=== PATIENT | male | born 1965 | race Caucasian/White ===

== ENCOUNTER 2016-10-03 16:43 | Outpatient (CLI) ==
[2015-04-23 02:18] VITALS: BMI 31.5
--- NOTE | 2016-10-03 17:02 | DI ---
EXAM: Three views of the left HISTORY: Pain. COMPARISON: Left hand x-ray 02/16/2011 FINDINGS: The left first digit is unchanged in appearance when compared to prior left hand x-ray . There is minimal irregularity of the proximal phalanx which is stable. There is degenerat rossana change of the first CMC joint and the MCP joint which is stable. The soft tissues are unremarka ble. IMPRESSION: No acute abnormality or displaced fracture of the left thumb with scattered mild degene rative disease most pronounced at the first CMC joint.
== END 2016-10-03 16:44 | disposition home or self-care (01) ==
LOC: RAD 16:43
PROVIDERS: ATTEND Nurse Practitioner Family
DX: M79.645 Pain in left finger(s) (principal); M65.312 Trigger thumb, left thumb

== ENCOUNTER 2016-10-12 13:37 | Outpatient (CLI) ==
[2015-04-23 02:18] VITALS: BMI 31.5
[2016-10-12 13:50] LABS: BASOPHILS % (AUTO) 0.4 % (0.0-3.0); EOSINOPHILS # (AUTO) 0.3 K/ul (0.0-0.7); EOSINOPHILS % (AUTO) 3.6 % (0.0-7.0); HEMATOCRIT 46.1 % (42.0-52.0); HEMOGLOBIN 15.4 g/dl (14.0-18.0); IMMATURE GRANULOCYTE % (AUTO) 0.3 % (0.0-5.0); LYMPHOCYTES % (AUTO) 38.8 (10.0-50.0); MEAN CORPUSCULAR HEMOGLOBIN 29.8 pg (27.0-31.0); MEAN CORPUSCULAR HGB CONC 33.4 (31.8-35.4); MEAN CORPUSCULAR VOLUME 89.3 fl (80.0-94.0); MONOCYTES # (AUTO) 0.7 K/uL (0.4-2.0); MONOCYTES % (AUTO) 9.4 (0-10); NEUTROPHILS # (AUTO) 3.7 K/ul (2.0-6.9); NEUTROPHILS % (AUTO) 47.5; PLATELET COUNT 369 10^3/uL (140-440); RED BLOOD COUNT 5.16 10^6/ul (4.70-6.10); WHITE BLOOD COUNT 7.84 K/ul (4.2-10.2)
[2016-10-12 14:00] LABS: ALBUMIN 3.9 g/dL (3.4-5.0); ALBUMIN/GLOBULIN RATIO 1.05; ANION GAP 9.5; BILIRUBIN,TOTAL 0.58 mg/dL (0.00-1.20); BUN/CREATININE RATIO 16.27; CALCIUM 9.8 mg/dL (8.2-10.2); CHOL/HDL RATIO 5.8 (4.5-6.4); CREATININE 0.86 mg/dL (0.60-1.10); POTASSIUM 4.5 mmol/L (3.5-5.1); TOTAL PROTEIN 7.6 g/dL (6.4-8.2)
== END 2016-10-12 13:38 | disposition home or self-care (01) ==
LOC: LAB 13:37
PROVIDERS: ATTEND Nurse Practitioner Family
DX: R81 Glycosuria (principal); R10.11 Right upper quadrant pain; E75.6 Lipid storage disorder, unspecified
CPT/HCPCS: 36415; 80053; 80061; 80074; 83036; 85025

== ENCOUNTER 2016-10-16 07:49 | Outpatient (CLI) ==
[2015-04-23 02:18] VITALS: BMI 31.5
[2016-10-16 08:18] LABS: CHOL/HDL RATIO 6.5 (4.5-6.4)
--- NOTE | 2016-10-16 08:44 | US ---
EXAM: Ultrasound abdomen limited. HISTORY: Right upper quadrant pain. COMPARISON: None available. TECHNIQUE: Abdominal, real time with image documentation: limited (eg, single organ, quadrant, fol low-up) FINDINGS: The liver demonstrates homogeneous parenchymal echogenicity without intrahepatic biliary dilatation. Portal venous flow is normal in direction. The gallbladder is without shadowing stones , wall thickening or pericholecystic fluid. Common duct measures approximately 0.3 cm. The pancrea s is not seen due to bowel gas. IMPRESSION: No acute sonographic abnormality of the liver, gallbladder or biliary system.
== END 2016-10-16 07:50 | disposition home or self-care (01) ==
LOC: RAD 07:49
PROVIDERS: ATTEND Nurse Practitioner Family
DX: R10.11 Right upper quadrant pain (principal); R79.89 Other specified abnormal findings of blood chemistry
CPT/HCPCS: 36415; 80061

== ENCOUNTER 2017-05-22 02:52 | Inpatient (IN) ==
[2017-05-22] MEDS ORDERED: XOPENEX 1.25 MG NEB STA (03:19)
[2017-05-22] MEDS ORDERED: SOLU-MEDROL 125 MG IVP STA (03:19)
[2017-05-22] MEDS ORDERED: SODIUM CHLORIDE 1,000 ML IV STA ×2 (03:19→06:06)
[2017-05-22] MEDS ORDERED: LEVAQUIN 750 MG in PREMIX 150 ML D5W 1 BAG IV STA (03:19)
[2017-05-22] MEDS ORDERED: DUONEB NEB STA (03:19)
[2017-05-22] MEDS ORDERED: LEVAQUIN 150 ML IV ONE (03:27)
[2017-05-22 03:39] LABS: BASOPHILS # (AUTO) 0.1 K/uL (0-0.2); BASOPHILS % (AUTO) 0.4 % (0.0-3.0); EOSINOPHILS # (AUTO) 0.1 K/ul (0.0-0.7); EOSINOPHILS % (AUTO) 0.5 % (0.0-7.0); HEMATOCRIT 41.9 % (42.0-52.0); HEMOGLOBIN 14.6 g/dl (14.0-18.0); IMMATURE GRANULOCYTE % (AUTO) 0.4 % (0.0-5.0); LYMPHOCYTES # (AUTO) 2.4 K/uL (0.60-3.4); LYMPHOCYTES % (AUTO) 14.5 (10.0-50.0); MEAN CORPUSCULAR HEMOGLOBIN 30.9 pg (27.0-31.0); MEAN CORPUSCULAR HGB CONC 34.8 (31.8-35.4); MEAN CORPUSCULAR VOLUME 88.6 fl (80.0-94.0); MONOCYTES # (AUTO) 1.9 K/uL (0.4-2.0); MONOCYTES % (AUTO) 11.1 (0-10); NEUTROPHILS # (AUTO) 12.2 K/ul (2.0-6.9); NEUTROPHILS % (AUTO) 73.1; PLATELET COUNT 591 10^3/uL (140-440); RED BLOOD COUNT 4.73 10^6/ul (4.70-6.10); WHITE BLOOD COUNT 16.63 K/ul (4.2-10.2)
[2017-05-22 03:43] LABS: ABG BASE EXCESS 3 (-2.0-2.0); ABG PCO2 39.2 mmHg (35-45); ABG PH 7.444 (7.35-7.45)
[2017-05-22 03:44] LABS: ABG HCO3 26.9 (22.0-26.0); ABG TCO2 28 (22.0-28.0)
[2017-05-22 03:56] LABS: FLU INTERNAL QC INTERNAL QC VALID; RAPID FLU A NEGATIVE (NEGATIVE); RAPID FLU B NEGATIVE (NEGATIVE)
[2017-05-22 04:05] LABS: ALANINE AMINOTRANSFERASE 79 U/L (12-78); ALBUMIN 3.1 g/dL (3.4-5.0); ALBUMIN/GLOBULIN RATIO 0.61; ALKALINE PHOSPHATASE 108 U/L (50-136); ANION GAP 15.9; ASPARTATE AMINO TRANSFERASE 29 U/L (15-37); BLOOD UREA NITROGEN 13 mg/dL (7-18); BUN/CREATININE RATIO 13.13; CARBON DIOXIDE 28 mmol/L (21-32); CHLORIDE 97 mmol/L (98-107); CREATINE KINASE 80 U/L; CREATININE 0.99 mg/dL (0.60-1.10); GLUCOSE 162 mg/dL (70-100); POTASSIUM 4.9 mmol/L (3.5-5.1); SODIUM 136 mmol/L (136-145); TOTAL PROTEIN 8.2 g/dL (6.4-8.2)
[2017-05-22 05:26] LABS: BILIRUBIN,URINE Negative (NEGATIVE); KETONES,URINE 1+ (NEGATIVE); LEUKOCYTE ESTERASE ,URINE Negative (NEGATIVE); NITRITE,URINE Negative (NEGATIVE); PROTEIN,URINE 2+ (NEGATIVE); URINE, BLOOD Trace-lysed (NEGATIVE)
[2017-05-22 05:32] LABS: ADD URINE MICROSCOPIC YES
--- NOTE | 2017-05-22 05:35 | CT ---
EXAM: CTA thorax HISTORY: Congestion fever, dyspnea COMPARISON: CTA thorax 08/12/2011 FINDINGS: Contiguous axial images obtained through the thorax following the uneventful administratio n of intravenous contrast utilizing 3-mm collimation. Sagittal and coronal reconstructions were imag ed and reviewed.. Source images were utilized to create rotating 3-D MIP images... Thoracic inlet is unremarkable. There is a 12 mm paratracheal lymph node. There are subcentimeter prevascular and AP window lymph nodes. There is 1.7 cm right hilar lymph node. There is a 2.1 cm subcarinal lymph nod e. The heart is normal in size with minimal coronary artery calcification. There is suboptimal opac ification of pulmonary arteries without central embolus. Scattered tree-in-bud opacities noted bilate rally compatible with bronchiolitis.. Nodular interstitial infiltrate is seen within the right lower lobe. There is no evidence of pleural effusion.. There is a 2 cm left adrenal adenoma. IMPRESSION: Suboptimal opacification of the pulmonary arteries without central embolus. Mildly ectatic ascending aorta measuring upwards of 3.4 cm. MEDIASTINAL, RIGHT HILAR AND SUBCARINAL LYMPHADENOPATHY WHICH IS LIKELY REACTIVE IN NATURE AND SHOULD BE FOLLOWED UP. SCATTERED TREE-IN-BUD CONFIGURATION IN ADDITION TO RIGHT LOWER LOBE PNEUMONIA.
--- NOTE | 2017-05-22 05:59 | ED.PDOC ---
General ED Provider: Dr. SHANICE PEGUERO-ER Chief Complaint: Shortness of Air Stated Complaint: im coughing up some yellow stuff and running a fever and chills Time Seen by Physician: 03:00 Mode of Arrival: Walk-In Information Source: Patient Exam Limitations: No limitations Primary Care Provider: [facility] Nursing and Triage Documentation Reviewed and Agree: Yes Respiratory Complaint Exam - Shortness of Air Complaint/Exam Onset/Duration: 7 dyas Symptoms Are: Still present Timing: Constant Initial Severity: Mild Current Severity: Moderate Character: Reports: Dyspnea at rest, Dyspnea on exertion Aggravating: Reports: Smoke exposure Alleviating: Reports: Bronchodilators Associated Signs and Symptoms: Reports: Cough, Wheezing, Fever, Chills, Nasal congestion, Rapid breathing. Denies: Chest pain with cough, Chest pain, Diaphoresis, Dizziness, Calf pain, Edema, Labored breathing History of Healthcare-Acquired Pneumonia: No Pulmonary Embolism Risk Factors: Reports: Smoking Cardiac Risk Factors: Reports: Smoking Home Oxygen Use: No Recent Stress Test: No Recent Echo/LV Function: No Respiratory Distress: Mild Stridor Present: No Tracheal Deviation: No Subcutaneous Emphysema: No Retractions: Not Present Diminished Breath Sounds: Yes Prolonged Expiratory Phase: No Unable to Speak Full Sentences: No Fatigue: No Leg Swelling: No Rizwan's Sign Present: No Grunting Respirations: No Kussmaul Respirations: No Differential Diagnoses: Pulmonary Edema, Pneumonia Quality Indicator For Non-Traumatic Chest Pain/Syncope: EKG Performed Quality Indicators For Pneumonia/CAP: Blood Cultures-SCU admit, SpO2 assessed, Empiric Antibiotic Rx, Vital signs, Mental status assessed Review of Systems - Review Of Systems Constitutional: Reports: Chills, Fever, Weakness Eyes: Reports: No symptoms Ears, Nose, Mouth, Throat: Reports: No symptoms Respiratory: Reports: Cough, Short of air Cardiac: Reports: No symptoms GI: Reports: No symptoms : Reports: No symptoms Musculoskeletal: Reports: No symptoms Skin: Reports: No symptoms Neurological: Reports: No symptoms Endocrine: Reports: No symptoms Hematologic/Lymphatic: Reports: No symptoms All Other Systems: Reviewed and Negative Past Medical History - Past Medical History Previously Healthy: Yes Endocrine: Reports: None Cardiovascular: Reports: None Respiratory: Reports: None Hematological: Reports: None Gastrointestinal: Reports: None Genitourinary: Reports: None Neuro/Psych: Reports: None Musculoskeletal: Reports: Other Cancer: Reports: None - Surgical History General Surgical History: Reports: Orthopedic (right thumb) - Family History Family History: Reports: None - Social History Smoking Status: Current every day smoker Hx Substance Use: Yes (marijuana) Alcohol Screening: None - Immunizations Tetanus Shot up to Date: Yes Physical Exam - Physical Exam Appearance: Well-appearing Pain Distress: Mild Eyes: JANE ENT: Ears normal, Nose normal, Oropharynx normal Neck: Supple Respiratory: Crackles, Rhonchi Cardiovascular: RRR, Pulses normal, No rub, No murmur GI/: Soft, Nontender, No masses, Bowel sounds normal, No Organomegaly Musculoskeletal: Normal strength, ROM intact, No edema, No calf tenderness Skin: Warm, Dry, Normal color Neurological: Sensation intact, Motor intact, Reflexes intact, Cranial nerves intact, Alert, Oriented Psychiatric: Affect appropriate, Mood appropriate Interpretation - Radiology Interpretation Radiology Interpretation By: Radiologist Radiology Results: Positive Exam Interpreted: CT Scan - EKG Interpretation Time of EKG #1: 05:59 Rate: Tachy Rhythm: Sinus Ectopy: None Dubberly: NL ST Segment: Normal Re-Evaluation - Re-Evaluation Time of Re-Evaluation: 05:59 Status: Improved Vital Signs Stable: Yes Pain Level: 0 Appearance: NAD Lungs: Clear Skin: Warm and Dry Neuro: Alert and Oriented X3 CV: RRR Critical Care Note - Critical Care Note Total Time (mins): 0 Course - Course Hematology/Chemistry: 05/22/17 03:35 05/22/17 03:35 Orders, Labs, Meds: Lab Review 05/22/17 05/22/17 05/22/17 03:17 03:30 03:35 WBC 16.63 H RBC 4.73 Hgb 14.6 Hct 41.9 L MCV 88.6 MCH 30.9 MCHC 34.8 RDW Coeff of Linda 14.0 Plt Count 591 H Immature Gran % (Auto) 0.4 Neut % (Auto) 73.1 Lymph % (Auto) 14.5 [place] % (Auto) 11.1 H Eos % (Auto) 0.5 Baso % (Auto) 0.4 Immature Gran # (Auto) 0.1 Neut # 12.2 H Lymph # 2.4 [place] # 1.9 Eos # 0.1 Baso # 0.1 Puncture Site Rr O2 Saturation 85.0 L ABG pH 7.444 ABG pCO2 39.2 ABG pO2 48.0 L* ABG HCO3 26.9 H ABG Total CO2 28 ABG Base Excess 3 H Chalino Test + FiO2 % 21.0 Sodium Potassium Chloride Carbon Dioxide Anion Gap BUN Creatinine Estimated GFR (MDRD) BUN/Creatinine Ratio Glucose Lactic Acid Calcium Total Bilirubin AST ALT Alkaline Phosphatase Total Creatine Kinase Troponin I B-Natriuretic Peptide Total Protein Albumin Globulin Albumin/Globulin Ratio Procalcitonin Urine Color Urine Clarity Urine pH Ur Specific Cunningham Urine Protein Urine Glucose (UA) Urine Ketones Urine Blood Urine Nitrite Urine Bilirubin Urine Urobilinogen Ur Leukocyte Esterase Urine Microscopic RBC Ur Squamous Epith Cells Influenza A (Rapid) Negative Influenza B (Rapid) Negative 05/22/17 05/22/17 05/22/17 03:35 03:35 03:35 WBC RBC Hgb Hct MCV MCH MCHC RDW Coeff of Linda Plt Count Immature Gran % (Auto) Neut % (Auto) Lymph % (Auto) [place] % (Auto) Eos % (Auto) Baso % (Auto) Immature Gran # (Auto) Neut # Lymph # [place] # Eos # Baso # Puncture Site O2 Saturation ABG pH ABG pCO2 ABG pO2 ABG HCO3 ABG Total CO2 ABG Base Excess Chalino Test FiO2 % Sodium 136 Potassium 4.9 Chloride 97 L Carbon Dioxide 28 Anion Gap 15.9 BUN 13 Creatinine 0.99 Estimated GFR (MDRD) 80.00 BUN/Creatinine Ratio 13.13 Glucose 162 H Lactic Acid 9.4 Calcium 10.0 Total Bilirubin 0.70 AST 29 ALT 79 H Alkaline Phosphatase 108 Total Creatine Kinase 80 Troponin I < 0.0100 B-Natriuretic Peptide 15 Total Protein 8.2 Albumin 3.1 L Globulin 5.1 Albumin/Globulin Ratio 0.61 Procalcitonin Urine Color Urine Clarity Urine pH Ur Specific Cunningham Urine Protein Urine Glucose (UA) Urine Ketones Urine Blood Urine Nitrite Urine Bilirubin Urine Urobilinogen Ur Leukocyte Esterase Urine Microscopic RBC Ur Squamous Epith Cells Influenza A (Rapid) Influenza B (Rapid) 05/22/17 05/22/17 03:35 05:20 WBC RBC Hgb Hct MCV MCH MCHC RDW Coeff of Linda Plt Count Immature Gran % (Auto) Neut % (Auto) Lymph % (Auto) [place] % (Auto) Eos % (Auto) Baso % (Auto) Immature Gran # (Auto) Neut # Lymph # [place] # Eos # Baso # Puncture Site O2 Saturation ABG pH ABG pCO2 ABG pO2 ABG HCO3 ABG Total CO2 ABG Base Excess Chalino Test FiO2 % Sodium Potassium Chloride Carbon Dioxide Anion Gap BUN Creatinine Estimated GFR (MDRD) BUN/Creatinine Ratio Glucose Lactic Acid Calcium Total Bilirubin AST ALT Alkaline Phosphatase Total Creatine Kinase Troponin I B-Natriuretic Peptide Total Protein Albumin Globulin Albumin/Globulin Ratio Procalcitonin 0.07 Urine Color Yellow Urine Clarity Clear Urine pH 5.0 Ur Specific Cunningham <=1.005 Urine Protein 2+ Urine Glucose (UA) Negative Urine Ketones 1+ Urine Blood Trace-lysed Urine Nitrite Negative Urine Bilirubin Negative Urine Urobilinogen 0.2 Ur Leukocyte Esterase Negative Urine Microscopic RBC 0-2 Ur Squamous Epith Cells 0-2 Influenza A (Rapid) Influenza B (Rapid) Orders Category Date Time Status ABG DRAW REQUEST Stat CARDIO 05/22/17 03:18 Completed EKG-(ED ONLY) Stat CARDIO 05/22/17 03:18 Completed NEBULIZER TREATMENT Stat CARDIO 05/22/17 03:20 Completed NPO REMINDER: IMAGING ONCE CARE 05/22/17 03:20 Completed IV [ED IV/MEDIPORT/POWERPORT] .ONCE EMERGENCY 05/22/17 03:18 Active ABG Stat LAB 05/22/17 03:17 Completed BLOOD CULTURE (ED ONLY) Stat LAB 05/22/17 03:35 Received BNP [B-TYPE NATRIURETIC PEPTIDE] Stat LAB 05/22/17 03:35 Completed CBC W/ AUTO DIFF Stat LAB 05/22/17 03:35 Completed COMPREHENSIVE METABOLIC PANEL Stat LAB 05/22/17 03:35 Completed CREATINE KINASE Stat LAB 05/22/17 03:35 Completed LACTIC ACID Stat LAB 05/22/17 03:35 Completed MOLECULAR GROUP A STREP Stat LAB 05/22/17 03:30 Results PROCALCITONIN Stat LAB 05/22/17 03:35 Completed RAPID FLU A/B Stat LAB 05/22/17 03:30 Completed STREP SCREEN Stat LAB 05/22/17 03:30 Results TROPONIN I Stat LAB 05/22/17 03:35 Completed URINALYSIS C & S IF INDICATED Stat LAB 05/22/17 05:20 Completed 0.9 % Sodium Chloride [Saline Flush] MEDS 05/22/17 03:18 Ordered 1 syr IVF PRN PRN Ipratropium/Albuterol Neb [Duoneb] MEDS 05/22/17 03:19 Discontinued 1 vial NEB ONCE STA Levalbuterol HCl [Xopenex 1.25 mg] MEDS 05/22/17 03:19 Discontinued 1 vial NEB ONCE STA Levofloxacin/D5w [Levaquin] 150 ml MEDS 05/22/17 03:27 Discontinued IV .STK-MED Levofloxacin/D5w [Levaquin] 750 mg MEDS 05/22/17 03:19 Discontinued Premix 150 ml D5w 1 bag IV ONCE Methylprednisolone Sod Succ/Pf [Solu-Medrol 125 mg] MEDS 05/22/17 03:19 Discontinued 125 mg IVP ONCE STA Sodium Chloride 0.9% [Sodium Chloride] 1,000 ml MEDS 05/22/17 03:19 Active IV 100 mls/hr CT CHEST PE PROTOCOL Stat RADS 05/22/17 03:20 Completed Medications Generic Name Dose Route Start Last Admin Trade Name Freq PRN Reason Stop Dose Admin Sodium Chloride 1,000 mls @ 100 mls/hr 05/22/17 03:19 05/22/17 03:26 Sodium Chloride IV 05/22/17 13:18 100 mls/hr .Q10H STA Administration Sodium Chloride 1 syr 05/22/17 03:18 05/22/17 03:25 Saline Flush IVF 1 syr PRN PRN Administration To flush IV Discontinued Medications Generic Name Dose Route Start Last Admin Trade Name Freq PRN Reason Stop Dose Admin Albuterol/Ipratropium 1 vial 05/22/17 03:19 05/22/17 03:33 Duoneb NEB 05/22/17 03:20 1 vial ONCE STA Administration Levofloxacin/Dextrose 750 mg/ 150 mls @ 100 mls/hr 05/22/17 03:19 05/22/17 03 :29 Dextrose IV 05/22/17 04:48 100 mls/hr ONCE STA Administration Levalbuterol HCl 1 vial 05/22/17 03:19 05/22/17 03:45 Xopenex 1.25 Mg NEB 05/22/17 03:20 1 vial ONCE STA Administration Methylprednisolone Sodium Succinate 125 mg 05/22/17 03:19 05/22/17 03:27 Solu-Medrol 125 Mg IVP 05/22/17 03:20 125 mg ONCE STA Administration Vital Signs: Temp Pulse Resp BP Pulse Ox 05/22/17 04:06 87 L 05/22/17 04:00 86 L 05/22/17 03:59 85 L 05/22/17 02:53 99.9 F H 110 H 22 142/85 H 86 L Departure - Departure Time of Disposition: 06:00 Disposition: ADMITTED INPATIENT Discharge Problem: Acute respiratory failure Qualifiers: Respiratory failure complication: hypoxia Qualified Code(s): J96.01 - Acute respiratory failure with hypoxia Pneumonia Qualifiers: Pneumonia type: due to unspecified organism Laterality: right Lung location: lower lobe of lung Qualified Code(s): J18.1 - Lobar pneumonia, unspecified organism Instructions: Community Acquired Pneumonia (ED) Condition: Fair Pt referred to PMD for follow-up: Yes Allergies/Adverse Reactions: Allergies cephalexin monohydrate [From Keflex] Adverse Reaction (Verified 05/22/17 03:01) Home Medications: Ambulatory Orders 1 [No Reported Medications] 05/22/17 Disposition Discussed With: Patient
[2017-05-22] MEDS ORDERED: TYLENOL PO PRN (06:01)
[2017-05-22 06:32] VITALS: BMI 28.5
[2017-05-22] MEDS: LOVENOX SUBCUT SCH (09:05)
[2017-05-22] MEDS: DUONEB NEB SCH ×3 (11:03→23:07)
[2017-05-22] MEDS: LEVAQUIN 750 MG in PREMIX 150 ML D5W 1 BAG IV SCH (20:13)
[2017-05-22] MEDS: SOLU-MEDROL 125 MG IVP SCH (20:22)
[2017-05-23] MEDS: SOLU-MEDROL 125 MG IVP SCH ×3 (04:26→20:00)
[2017-05-23 04:31] LABS: BASOPHILS % (AUTO) 0.2 % (0.0-3.0); HEMOGLOBIN 13.5 g/dl (14.0-18.0); IMMATURE GRANULOCYTE % (AUTO) 0.9 % (0.0-5.0); LYMPHOCYTES # (AUTO) 1.2 K/uL (0.60-3.4); LYMPHOCYTES % (AUTO) 6.1 (10.0-50.0); MEAN CORPUSCULAR HEMOGLOBIN 30.6 pg (27.0-31.0); MEAN CORPUSCULAR HGB CONC 34.6 (31.8-35.4); MEAN CORPUSCULAR VOLUME 88.4 fl (80.0-94.0); MONOCYTES # (AUTO) 0.9 K/uL (0.4-2.0); MONOCYTES % (AUTO) 4.7 (0-10); NEUTROPHILS % (AUTO) 88.1; PLATELET COUNT 607 10^3/uL (140-440); RED BLOOD COUNT 4.41 10^6/ul (4.70-6.10); WHITE BLOOD COUNT 19.28 K/ul (4.2-10.2)
[2017-05-23 04:57] LABS: ALBUMIN 2.6 g/dL (3.4-5.0); ALBUMIN/GLOBULIN RATIO 0.51; ANION GAP 17.7; BILIRUBIN,TOTAL 0.27 mg/dL (0.00-1.20); CALCIUM 10.1 mg/dL (8.2-10.2); POTASSIUM 4.7 mmol/L (3.5-5.1); TOTAL PROTEIN 7.7 g/dL (6.4-8.2)
[2017-05-23] MEDS: DUONEB NEB SCH ×4 (05:02→22:15)
[2017-05-23 07:42] LABS: ABG PCO2 39.1 mmHg (35-45); ABG PH 7.427 (7.35-7.45)
[2017-05-23 07:43] LABS: ABG BASE EXCESS 1 (-2.0-2.0); ABG HCO3 25.7 (22.0-26.0); ABG TCO2 27 (22.0-28.0)
[2017-05-23] MEDS: LOVENOX SUBCUT SCH (09:19)
--- NOTE | 2017-05-23 15:48 | HP ---
DATE OF SERVICE: 05/22/17 CHIEF COMPLAINT: Shortness of breath. HISTORY OF PRESENT ILLNESS: This is a 51-year-old male who came to the emergency room with shortness of breath, worsening for one week gradually getting worse, wheezing, coughing ( nonproductive) having palpitations, hurting all over the body, fever of 102. Fever and chills unable to breathe so came in and saw Dr. Lepe in the emergency room. Initial white blood count of 16,000. ABG showed pH 7.44, pc02 39.2, p02 48. First set of cardiac enzymes are negative. CT chest with PE protocol was done which showed right lower lobe pneumonia, no pulmonary embolism. At that time the patient was admitted to the hospital with acute respiratory failure, right lower lobe pneumonia, community acquired pneumonia. REVIEW OF SYSTEMS: CONSTITUTIONAL: Weakness, tiredness. Fever and chills. HEENT: Normal. ENDOCRINE: No weight gain; no weight loss. CVS: No chest pain. No PND, no orthopnea. Shortness of breath. No PND, no orthopnea. RESPIRATORY: Cough and congestion. No hemoptysis. GI: No nausea, no vomiting. No abdominal pain. No melena. : No hematuria. No polyuria. MUSCULOSKELETAL: No joint swelling. PSYCHIATRIC: Not anxious. No depression. No suicidal thoughts. No homicidal thoughts. SKIN: Intact, no open lesions. PAST MEDICAL HISTORY: Smoking Substance use PAST SURGICAL HISTORY: None PERSONAL HISTORY: The patient does smoke, 5 cigarettes a day, trying to quit. No alcohol. No drugs. Uses Marijuana. FAMILY HISTORY: Significant for heart problem and diabetes. MEDICATIONS: (Home) None ALLERGIES: KEFLEX PHYSICAL EXAMINATION: V/S: BP 142/85, respiratory rate 22, heart rate 110, temperature 99.9. Saturation 86 on 2L. GENERAL: The patient is in mild distress from shortness of breath. HEENT: Atraumatic, normocephalic. No scleral icterus. Pallor positive. Mucosa dry. NECK: Supple. No JVD, no bruit. No lymphadenopathy. No thyromegaly. HEART: S1, S2 normal. No murmur. No cyanosis or clubbing. No ascites. LUNGS: Decreased entry, basilar crackles. Mild expiratory wheeze. ABDOMEN: Soft, nontender. Bowel sounds are active. No CVA tenderness. No rigidity or guarding. EXTREMITIES: No cyanosis, clubbing or pedal edema. MUSCULOSKELETAL: Normal joints, no swelling. NEUROLOGIC: The patient is SKIN: Intact; no open lesions. LYMPHATIC: No lymph nodes palpable. LABS: Sodium 136, potassium 4.9, chloride 97, bicarb 28, BUN 13, creatinine 0.99. White count 16.63, hemoglobin 14.6, hematocrit 41.9, platelet count 591. ASSESSMENT: 1. HYPOXEMIC RESPIRATORY FAILURE SECONDARY TO RIGHT LOWER LOBE COMMUNITY ACQUIRED PNEUMONIA 2. LEUKOCYTOSIS FROM PNEUMONIA 3. SHORTNESS OF BREATH FROM PNEUMONIA PLAN: 1. Admit patient to the regular floor. 2. CBC, CMP today and daily. 3. Cardiac enzymes and troponin. 4. IV fluids. 5. Duonebs. 6. Levaquin. 7. Solu-Medrol 80 q.8hr. 8. Daily I & O's. TIME SPENT: MORE THAN 70 minutes MTDD
[2017-05-23] MEDS: LEVAQUIN 750 MG in PREMIX 150 ML D5W 1 BAG IV SCH (20:00)
[2017-05-24 04:36] LABS: BASOPHILS % (AUTO) 0.2 % (0.0-3.0); HEMATOCRIT 38.9 % (42.0-52.0); HEMOGLOBIN 13.2 g/dl (14.0-18.0); IMMATURE GRANULOCYTE % (AUTO) 1.1 % (0.0-5.0); LYMPHOCYTES # (AUTO) 1.7 K/uL (0.60-3.4); LYMPHOCYTES % (AUTO) 6.7 (10.0-50.0); MEAN CORPUSCULAR HEMOGLOBIN 30.2 pg (27.0-31.0); MEAN CORPUSCULAR HGB CONC 33.9 (31.8-35.4); MONOCYTES # (AUTO) 1.3 K/uL (0.4-2.0); MONOCYTES % (AUTO) 4.9 (0-10); NEUTROPHILS # (AUTO) 22.1 K/ul (2.0-6.9); NEUTROPHILS % (AUTO) 87.1; PLATELET COUNT 631 10^3/uL (140-440); RED BLOOD COUNT 4.37 10^6/ul (4.70-6.10); WHITE BLOOD COUNT 25.36 K/ul (4.2-10.2)
[2017-05-24] MEDS: DUONEB NEB SCH ×4 (04:58→22:00)
[2017-05-24 05:07] LABS: ALBUMIN 2.7 g/dL (3.4-5.0); ALBUMIN/GLOBULIN RATIO 0.6; ANION GAP 12.5; BILIRUBIN,TOTAL 0.24 mg/dL (0.00-1.20); BUN/CREATININE RATIO 24.13; CALCIUM 9.7 mg/dL (8.2-10.2); CREATININE 0.87 mg/dL (0.60-1.10); POTASSIUM 4.5 mmol/L (3.5-5.1); TOTAL PROTEIN 7.2 g/dL (6.4-8.2)
[2017-05-24] MEDS: SOLU-MEDROL 125 MG IVP SCH ×3 (05:14→20:49)
[2017-05-24] MEDS: LOVENOX SUBCUT SCH (10:18)
--- NOTE | 2017-05-24 10:38 | DI ---
EXAM: Two views of the chest. History: Cough. Comparison: Chest radiograph 06/11/2014, chest CT 05/22/2017 Findings: Heart size is within normal limits. Patchy bilateral interstitial infiltrates are stable to slightly improved. No acute osseous abnormalities. No appreciable pleural fluid and no pneumothor ax. Impression: Persistent but improving bilateral pneumonia.
[2017-05-24] MEDS: LEVAQUIN 750 MG in PREMIX 150 ML D5W 1 BAG IV SCH (20:49)
[2017-05-25] MEDS: DUONEB NEB SCH ×2 (04:50→11:11)
[2017-05-25] MEDS: SOLU-MEDROL 125 MG IVP SCH ×2 (05:13→13:39)
[2017-05-25 05:14] LABS: HEMATOCRIT 36.9 % (42.0-52.0); HEMOGLOBIN 13.8 g/dl (14.0-18.0); MEAN CORPUSCULAR HEMOGLOBIN 34.2 pg (27.0-31.0); MEAN CORPUSCULAR HGB CONC 37.4 (31.8-35.4); MEAN CORPUSCULAR VOLUME 91.6 fl (80.0-94.0); PLATELET COUNT 668 10^3/uL (140-440); RED BLOOD COUNT 4.03 10^6/ul (4.70-6.10); WHITE BLOOD COUNT 20.84 K/ul (4.2-10.2)
[2017-05-25 05:37] LABS: ALBUMIN 2.8 g/dL (3.4-5.0); ALBUMIN/GLOBULIN RATIO 0.64; ANION GAP 11.8; BILIRUBIN,TOTAL 0.33 mg/dL (0.00-1.20); BUN/CREATININE RATIO 22.61; CALCIUM 9.4 mg/dL (8.2-10.2); CREATININE 0.84 mg/dL (0.60-1.10); POTASSIUM 4.8 mmol/L (3.5-5.1); TOTAL PROTEIN 7.2 g/dL (6.4-8.2)
[2017-05-25 05:38] LABS: ANISOCYTOSIS NOT PRESENT (NOT PRESENT)
[2017-05-25 05:53] VITALS: TEMP 97.6
[2017-05-25] MEDS: LOVENOX SUBCUT SCH (09:15)
[2017-05-25 10:37] VITALS: BP 128/83
[2017-05-25] MEDS ORDERED: LEVAQUIN 750 MG in PREMIX 150 ML D5W 1 BAG IV ONE (12:00)
--- NOTE | 2017-06-29 15:22 | PN ---
DATE OF SERVICE: 05/23/17 SUBJECTIVE: The patient was admitted with acute respiratory failure, right lower lobe pneumonia and COPD exacerbation. The patient is sitting in the bed still coughing and congestion. REVIEW OF SYSTEMS: CONSTITUTIONAL: No fever, no chills. HEENT: Normal. ENDOCRINE: No weight gain, no weight loss. CVS: No angina symptoms. No CHF symptoms. No palpitations. No atypical chest pain for CAD. No shortness of breath. No PND, no orthopnea. RESPIRATORY: Cough and congestion. no hemoptysis. GI: No nausea, no vomiting. No abdominal pain. : No hematuria. No polyuria. MUSCULOSKELETAL:. No joint swelling. PSYCHIATRIC: Not anxious. No depression. No suicidal thoughts. No homicidal thoughts. SKIN: Intact. No rash. PHYSICAL EXAMINATION: V/S: Blood pressure 133/69, respiratory rate 24, heart rate 93, temperature 97.6 with saturation 90 on 3 liters. HEENT: Normocephalic, atraumatic. Mucosa dry. Pallor positive. No icterus. NECK: Supple. No JVD, no carotid bruit. No lymphadenopathy. LUNGS: Decreased and basilar crackles right lower lobe more than the left. Clear to auscultation. No rales or rhonchi. HEART: S1, S2 normal. No S3. No murmur, gallop or regurgitation. ABDOMEN: Soft, nontender. Bowel sounds active. No rigidity. No rebound or guarding. No CVA tenderness. EXTREMITIES: No clubbing, cyanosis or pedal edema. MUSCULOSKELETAL: No joint swelling. NEUROLOGIC: Awake, alert, oriented times three. No focal deficit. LYMPHATIC: No lymph nodes palpable. SKIN: Intact. LABS: WBC 19.28, hgb 13.5, hct 39.0, plt count 607, sodium 140, potassium 4.7, chloride 101, bicarb 26, BUN 20, creatinine 1.0. ASSESSMENT: 1. Acute respiratory failure, hypoxic 2. Right lower lobe pneumonia, community acquired 3. History of nicotine use 4. Hyperglycemia from the steroids 5. Leukocyte esterase from the steroids PLAN: 1. Continue to given breathing treatments 2. DUO NEBS 3. IV fluids 4. Lovenox for the DVT prophylaxis 5. Levofloxacin 6. Solu-Medrol 80mg Q 8 hours TIME SPENT: More than 35 minutes MTDD
--- NOTE | 2017-07-05 11:51 | DS ---
DATE OF SERVICE: 05/25/17 FINAL DIAGNOSIS: 1. ACUTE RESPIRATORY FAILURE SECONDARY TO RIGHT LOWER LOBE PNEUMONIA, COMMUNITY ACQUIRED 2. HYPOXEMIA 3. HISTORY OF NICOTINE USE DISCHARGE INSTRUCTIONS: Followup appointment: MEDICATIONS AT DISCHARGE: None NEW PRESCRIPTIONS: Levaquin 500 mg once a day for 5 more days Medrol Dosepak Atrovent HFA two puffs three times a day for breathing DIET INSTRUCTIONS: Healthy diet ACTIVITY: As much as tolerated SMOKING: Smoker - advised to quit DISEASE SPECIFIC EDUCATION: 1. Pneumonia needing pneumonia vaccination 2. Nicotine use - lung cancer discussed, strictly advised to cut down on the smoking and offered help. He does not want to quit at this time, wants to follow at [facility] and talk about it HOSPITAL COURSE: The patient came to the emergency room with cough, congestion, shortness of breath found to be in acute respiratory failure. Saturation was 86 on room air. BP was 142/85. At that time, Dr. Lepe saw the patient. ABG showed pH 7.44, pc02 31, p02 48. CT chest was done and showed right lower lobe pneumonia. At that time, the patient was admitted to the hospital with acute respiratory failure, right lower lobe pneumonia with lymphadenopathy. She was started on IV Levaquin as the patient was allergic to Keflex. Solu-Medrol was given, breathing treatment was given. Gradually the patient started feeling better, up and about walking. Oxygen saturation was getting better up to 93-94-92 on room air, more active, up and about walking. The patient requested discharge today as the patient has some work at home and weather getting cold, so he doesn't want the family to be in the cold so he has to go. He promised that he would come back in case things get worse. He promised that he would be back to the clinic to discuss about his nicotine addiction and some help. TIME SPENT: MORE THAN 55 MINUTES ARNIE
== END 2017-05-25 13:45 | disposition home or self-care (01) | DRG 193 ==
LOC: ED 02:52 → SCU 06:04
PROVIDERS: ADMIT Emergency Medicine; ATTEND Emergency Medicine
DX: J18.1 Lobar pneumonia, unspecified organism (principal); J96.01 Acute respiratory failure with hypoxia; R06.02 Shortness of breath; R50.9 Fever, unspecified; F17.200 Nicotine dependence, unspecified, uncomplicated
CPT/HCPCS: 36415; 80053; 81001; 82550; 82803; 83605; 83880; 84145; 84484; 85007; 85025; 87040; 87081; 87651; 87804; 87880; 93005; 93010; 94640; 94761; 96361; 96365; 96375; 99223; 99233; 99239; 99284

== ENCOUNTER 2017-06-28 14:32 | Outpatient (CLI) ==
[2017-06-28 14:38] LABS: BASOPHILS % (AUTO) 0.5 % (0.0-3.0); EOSINOPHILS # (AUTO) 0.2 K/ul (0.0-0.7); EOSINOPHILS % (AUTO) 1.9 % (0.0-7.0); HEMATOCRIT 47.5 % (42.0-52.0); HEMOGLOBIN 15.5 g/dl (14.0-18.0); IMMATURE GRANULOCYTE % (AUTO) 0.2 % (0.0-5.0); LYMPHOCYTES # (AUTO) 2.8 K/uL (0.60-3.4); LYMPHOCYTES % (AUTO) 32.2 (10.0-50.0); MEAN CORPUSCULAR HEMOGLOBIN 29.5 pg (27.0-31.0); MEAN CORPUSCULAR HGB CONC 32.6 (31.8-35.4); MEAN CORPUSCULAR VOLUME 90.5 fl (80.0-94.0); MONOCYTES # (AUTO) 0.8 K/uL (0.4-2.0); MONOCYTES % (AUTO) 9.1 (0-10); NEUTROPHILS # (AUTO) 4.8 K/ul (2.0-6.9); NEUTROPHILS % (AUTO) 56.1; PLATELET COUNT 474 10^3/uL (140-440); RED BLOOD COUNT 5.25 10^6/ul (4.70-6.10); WHITE BLOOD COUNT 8.56 K/ul (4.2-10.2)
== END 2017-06-28 14:33 | disposition home or self-care (01) ==
LOC: LAB 14:32
PROVIDERS: ATTEND Emergency Medicine
DX: E78.5 Hyperlipidemia, unspecified (principal); J18.1 Lobar pneumonia, unspecified organism; J44.9 Chronic obstructive pulmonary disease, unspecified
CPT/HCPCS: 36415; 85025

== ENCOUNTER 2018-05-24 17:06 | Outpatient (CLI) ==
--- NOTE | 2018-05-24 17:43 | US ---
EXAM: Right lower extremity venous Doppler HISTORY: Pain right lower leg TECHNIQUE: Real time duplex ultrasound is performed on the common femoral, greater saphenous, profun da femoris, superficial femoral, popliteal, peroneal, anterior tibial, and posterior tibial veins. COMPARISON: None FINDINGS: The veins are free of intraluminal filling defects. The veins are compressible and show i ncreased flow with augmentation. Normal variability with respiration is noted. IMPRESSION: No evidence of deep or superficial vein thrombosis.
== END 2018-05-24 17:07 | disposition home or self-care (01) ==
LOC: RAD 17:06
PROVIDERS: ATTEND Family Medicine
DX: M79.661 Pain in right lower leg (principal)

== ENCOUNTER 2018-08-26 05:38 | Emergency (ER) | payer MEDICAID, OTHER ==
[2018-08-26 05:44] VITALS: TEMP 97.5; BMI 31.0
[2018-08-26] MEDS ORDERED: ASPIRIN CHEWABLE ONE (05:51)
[2018-08-26] MEDS ORDERED: NITROSTAT SL ONE (05:51)
[2018-08-26] MEDS ORDERED: NITROSTAT SL PRN (05:52)
[2018-08-26] MEDS ORDERED: ASPIRIN CHEWABLE PO STA (05:53)
[2018-08-26] MEDS ORDERED: ZOFRAN 4 MG/2 ML IVP STA (05:54)
[2018-08-26] MEDS ORDERED: MORPHINE 2 MG/ML SYRINGE IVP STA (05:54)
--- NOTE | 2018-08-26 06:12 | ED.PDOC ---
General ED Provider: Dr. SHANICE PEGUERO-ER Chief Complaint: Chest Pain Stated Complaint: my chest hurt--i broke out in a sweat and it weent down my arm Time Seen by Physician: 05:45 Mode of Arrival: Walk-In Information Source: Patient Exam Limitations: No limitations Primary Care Provider: LOAN CORONA Nursing and Triage Documentation Reviewed and Agree: Yes Does patient meet sepsis criteria?: No System Inflammatory Response Syndrome: Not Applicable Sepsis Protocol: For patient's 13 years and over: Temp is 96.8 and below OR 101 and greater Pulse >90 BPM Resp >20/minute Acutely Altered Mental Status Are patient's symptoms suggestive of a new infection, such as: -Pneumonia -Skin, Soft Tissue -Endocarditis -UTI -Bone, Joint Infection -Implantable Device -Acute Abdominal Infection -Wound Infection -Meningitis -Blood Stream Catheter Infection -Unknown Cardiovascular Complaint Exam - Chest Pain Complaint/Exam Onset: Sudden Duration: 45 min Symptoms Are: Still present Initial Severity: Mild Current Severity: Moderate Location: Reports: Discrete Pain Radiates: Reports: Left shoulder, Left arm Character: Reports: Dull, Aching, Heaviness, Pressure Alleviating: Reports: Nitro, Oxygen Associated Signs and Symptoms: Denies: Diaphoresis, Nausea, Vomiting, Fever, Palpitations, Cough, Hemoptysis, Back pain, Abdominal pain, Dizziness, Short of air, Calf pain, Calf swelling Prior Care for this Complaint: No Recent Stress Test: No Recent Echo/LV Function: No JVD Present: No Subcutaneous Emphysema Present: No Diminshed Breath Sounds: No Reproducible Chest Wall Pain: No Bilateral Pulses Present: Yes Unequal Pulses Noted: No Differential Diagnoses: Acute ME, ACS Quality Indicator For Non-Traumatic Chest Pain/Syncope: EKG Performed Review of Systems - Review Of Systems Constitutional: Reports: No symptoms Eyes: Reports: No symptoms Ears, Nose, Mouth, Throat: Reports: No symptoms Respiratory: Reports: No symptoms Cardiac: Reports: Chest pain GI: Reports: No symptoms : Reports: No symptoms Musculoskeletal: Reports: No symptoms Skin: Reports: No symptoms Neurological: Reports: No symptoms Endocrine: Reports: No symptoms Hematologic/Lymphatic: Reports: No symptoms All Other Systems: Reviewed and Negative Past Medical History - Past Medical History Previously Healthy: Yes Endocrine: Reports: None Cardiovascular: Reports: None Respiratory: Reports: None Hematological: Reports: None Gastrointestinal: Reports: None Genitourinary: Reports: None Neuro/Psych: Reports: None Musculoskeletal: Reports: Other Cancer: Reports: None - Surgical History General Surgical History: Reports: Orthopedic (right thumb) - Family History Family History: Reports: None - Social History Smoking Status: Current every day smoker, Heavy tobacco smoker Hx Substance Use: No Alcohol Screening: None - Immunizations Tetanus Shot up to Date: Yes Physical Exam - Physical Exam Appearance: Well-appearing Pain Distress: Moderate Eyes: JANE ENT: Ears normal, Nose normal, Oropharynx normal Neck: Supple Respiratory: Airway patent, Breath sounds clear, Breath sounds equal, Respirations nonlabored Cardiovascular: RRR, Pulses normal, No rub, No murmur GI/: Soft, Nontender, No masses, Bowel sounds normal, No Organomegaly Musculoskeletal: Normal strength Skin: Warm Neurological: Sensation intact, Motor intact, Reflexes intact, Cranial nerves intact, Alert, Oriented Psychiatric: Affect appropriate, Mood appropriate Interpretation - Radiology Interpretation Radiology Interpretation By: ED Physician Radiology Results: Negative Exam Interpreted: Portable CXR - EKG Interpretation Time of EKG #1: 06:12 Rate: Normal Rhythm: Sinus Ectopy: None [place]: NL ST Segment: Normal Interpretation: nsr Physician Notification - Case Discussed Physician Notified: dr sims--freddie er Time of Notification: 06:15 Critical Care Note - Critical Care Note Total Time (mins): 30 Course - Course Hematology/Chemistry: 08/26/18 05:52 Orders, Labs, Meds: Lab Review 08/26/18 05:52 WBC 9.69 RBC 5.15 Hgb 15.1 Hct 46.2 MCV 89.7 MCH 29.3 MCHC 32.7 RDW Coeff of Linda 14.0 Plt Count 332 Immature Gran % (Auto) 0.2 Neut % (Auto) 49.2 Lymph % (Auto) 35.4 [place] % (Auto) 10.0 Eos % (Auto) 4.7 Baso % (Auto) 0.5 Immature Gran # (Auto) 0.0 Neut # (Auto) 4.8 Lymph # (Auto) 3.4 [place] # (Auto) 1.0 Eos # (Auto) 0.5 Baso # (Auto) 0.1 Orders Category Date Time Status EKG-(ED ONLY) Stat CARDIO 08/26/18 05:46 Completed ED SALES DEMONSTRATOR APPLIED .ONCE EMERGENCY 08/26/18 05:47 Active ED IV/MEDIPORT/POWERPORT .ONCE EMERGENCY 08/26/18 05:46 Active AMYLASE Stat LAB 08/26/18 05:52 Received CBC W/ AUTO DIFF Stat LAB 08/26/18 05:52 Completed COMPREHENSIVE METABOLIC PANEL Stat LAB 08/26/18 05:52 Received CREATINE KINASE Stat LAB 08/26/18 05:52 Received LIPASE Stat LAB 08/26/18 05:52 Received TROPONIN I Stat LAB 08/26/18 05:52 Received 0.9 % Sodium Chloride [Saline Flush] MEDS 08/26/18 05:46 Ordered 1 syr IVF PRN PRN Aspirin [Aspirin Chewable] MEDS 08/26/18 05:53 Discontinued 324 mg PO ONCE STA Morphine Sulfate [Morphine 2 mg/ml Syringe] MEDS 08/26/18 05:54 Discontinued 2 mg IVP ONCE STA Nitroglycerin [Nitrostat] MEDS 08/26/18 05:52 Ordered 0.4 mg SL Q5MIN X 3 DOSES PRN Ondansetron HCl/Pf [Zofran 4 mg/2 ml] MEDS 08/26/18 05:54 Discontinued 4 mg IVP ONCE STA CXR [CHEST, 1V AP ONLY] Stat RADS 08/26/18 05:47 Taken Medications Generic Name Dose Route Start Last Admin Trade Name Freq PRN Reason Stop Dose Admin Nitroglycerin 0.4 mg 08/26/18 05:52 08/26/18 05:55 Nitrostat SL 0.4 mg Q5MIN X 3 DOSES PRN Administration Chest Pain Sodium Chloride 1 syr 08/26/18 05:46 08/26/18 05:56 Saline Flush IVF 1 syr PRN PRN Administration To flush IV Discontinued Medications Generic Name Dose Route Start Last Admin Trade Name Freq PRN Reason Stop Dose Admin Aspirin 324 mg 08/26/18 05:53 08/26/18 05:56 Aspirin Chewable PO 08/26/18 05:54 324 mg ONCE STA Administration Morphine Sulfate 2 mg 08/26/18 05:54 08/26/18 05:59 Morphine 2 Mg/Ml Syringe IVP 08/26/18 05:55 2 mg ONCE STA Administration Ondansetron HCl 4 mg 08/26/18 05:54 08/26/18 05:59 Zofran 4 Mg/2 Ml IVP 08/26/18 05:55 4 mg ONCE STA Administration Vital Signs: Temp Pulse Resp BP Pulse Ox 08/26/18 05:38 97.5 F L 78 20 167/97 H 95 SMILEY Risk Score SMILEY Risk Score: Risk Score Odds of by 30D 0 0.1 (0.1-0.2) 1 0.3 (0.2-0.3) 2 0.4 (0.3-0.5) 3 0.7 (0.6-0.9) 4 1.2 (1.0-1.5) 5 2.2 (1.9-2.6) 6 3.0 (2.5-3.6) 7 4.8 (3.8-6.1) Departure - Departure Time of Disposition: 06:15 Disposition: TSF SHORT-TRM HOSP Discharge Problem: Chest pain Instructions: Chest Pain (ED) Condition: Good Pt referred to PMD for follow-up: Yes IPMP verified?: No Allergies/Adverse Reactions: Allergies cephalexin monohydrate [From Keflex] Adverse Reaction (Verified 08/26/18 05:44) Home Medications: Ambulatory Orders 1 [No Reported Medications] 08/26/18 Transfer Form Completed: Yes Disposition Discussed With: Patient
[2018-08-26 06:38] VITALS: BP 163/95
--- NOTE | 2018-08-26 07:16 | DI ---
Exam: Single view of the chest. Comparison: 05/24/2017. Reason for exam: Chest pain. FINDINGS: No pneumothorax, pleural effusion, or focal consolidation. There is mild prominence of th e interstitial lung markings. The cardiac silhouette is unchanged. Impression: Imaging findings are most consistent with mild interstitial edema/pulmonary vascular con gestion. No focal consolidation is seen.
== END 2018-08-26 06:48 | disposition short-term general hospital (02) ==
LOC: ED 05:38
DX: R07.9 Chest pain, unspecified (principal); F17.210 Nicotine dependence, cigarettes, uncomplicated; R61 Generalized hyperhidrosis; M79.602 Pain in left arm
CPT/HCPCS: 36415; 80053; 82150; 82550; 83690; 84484; 85025; 93005; 93010; 96374; 96375; 99285

== ENCOUNTER 2018-08-26 06:34 | Outpatient (CLI) ==
[2018-08-26 05:44] VITALS: BMI 31.0
== END 2018-08-26 06:54 | disposition short-term general hospital (02) ==
LOC: AMBL 06:34
PROVIDERS: ATTEND Family Medicine
DX: R07.9 Chest pain, unspecified (principal)

== ENCOUNTER 2018-09-06 11:03 | Outpatient (RCR) ==
[2018-09-06 11:54] VITALS: TEMP 207.5; BMI 30.2
[2018-09-25 10:01] VITALS: BP 120/58
== END 2018-09-26 23:59 ==
LOC: CAR.REHAB 11:03
PROVIDERS: ATTEND Internal Medicine
DX: I21.4 Non-ST elevation (NSTEMI) myocardial infarction (principal)
CPT/HCPCS: 93798

== ENCOUNTER 2018-09-27 06:26 | Outpatient (RCR) ==
[2018-10-25 10:03] VITALS: BP 120/58
== END 2018-10-27 23:59 ==
LOC: CAR.REHAB 06:26
PROVIDERS: ATTEND Internal Medicine
DX: I21.4 Non-ST elevation (NSTEMI) myocardial infarction (principal)
CPT/HCPCS: 93798

== ENCOUNTER 2018-10-28 06:53 | Outpatient (RCR) ==
[2018-11-25 09:56] VITALS: BP 114/62
== END 2018-11-26 23:59 ==
LOC: CAR.REHAB 06:53
PROVIDERS: ATTEND Internal Medicine
DX: I21.4 Non-ST elevation (NSTEMI) myocardial infarction (principal)
CPT/HCPCS: 93798

== ENCOUNTER 2018-11-27 06:45 | Outpatient (RCR) ==
[2018-12-18 09:55] VITALS: BP 108/54
== END 2018-12-18 13:00 | disposition home or self-care (01) ==
LOC: CAR.REHAB 06:45
PROVIDERS: ATTEND Internal Medicine
DX: I21.4 Non-ST elevation (NSTEMI) myocardial infarction (principal)
CPT/HCPCS: 93798

== ENCOUNTER 2019-01-25 10:49 | Emergency (ER) ==
[2019-01-25 10:57] VITALS: BP 148/84; TEMP 98.2; BMI 28.3
[2019-01-25] MEDS: FLEXERIL PO STA (11:17)
--- NOTE | 2019-01-25 11:18 | ED.PDOC ---
General ED Provider: Dr. SHANICE HAQUE MD Chief Complaint: Back Pain Stated Complaint: back pain radiating down leg Time Seen by Physician: 11:05 Mode of Arrival: Walk-In Information Source: Patient Exam Limitations: No limitations Primary Care Provider: LOAN CORONA Nursing and Triage Documentation Reviewed and Agree: Yes Does patient meet sepsis criteria?: No If yes, has appropriate treatment been initiated?: Yes System Inflammatory Response Syndrome: Not Applicable Sepsis Protocol: For patient's 13 years and over: Temp is 96.8 and below OR 101 and greater Pulse >90 BPM Resp >20/minute Acutely Altered Mental Status Are patient's symptoms suggestive of a new infection, such as: -Pneumonia -Skin, Soft Tissue -Endocarditis -UTI -Bone, Joint Infection -Implantable Device -Acute Abdominal Infection -Wound Infection -Meningitis -Blood Stream Catheter Infection -Unknown Review of Systems - Review Of Systems Constitutional: Reports: No symptoms Eyes: Reports: No symptoms Ears, Nose, Mouth, Throat: Reports: No symptoms Respiratory: Reports: No symptoms Cardiac: Reports: No symptoms GI: Reports: No symptoms : Reports: No symptoms Musculoskeletal: Reports: Back pain (lifting a heavy log 2 days ago) Skin: Reports: No symptoms Neurological: Reports: No symptoms Endocrine: Reports: No symptoms Hematologic/Lymphatic: Reports: No symptoms All Other Systems: Reviewed and Negative Past Medical History - Past Medical History Previously Healthy: Yes Endocrine: Reports: None Cardiovascular: Reports: None Respiratory: Reports: None Hematological: Reports: None Gastrointestinal: Reports: None Genitourinary: Reports: None Neuro/Psych: Reports: None Musculoskeletal: Reports: Other Cancer: Reports: None - Surgical History General Surgical History: Reports: Orthopedic (right thumb) - Family History Family History: Reports: None - Social History Smoking Status: Current every day smoker Hx Substance Use: No Alcohol Screening: None - Immunizations Tetanus Shot up to Date: Yes Physical Exam - Physical Exam Appearance: Well-appearing, No pain distress, Well-nourished Pain Distress: Moderate Eyes: JANE, EOMI, Conjunctiva clear ENT: Ears normal, Nose normal, Oropharynx normal Respiratory: Airway patent, Breath sounds clear, Breath sounds equal, Respirations nonlabored Cardiovascular: RRR, Pulses normal, No rub, No murmur GI/: Soft, Nontender, No masses, Bowel sounds normal, No Organomegaly Musculoskeletal: Limited ROM Skin: Warm, Dry, Normal color Neurological: Sensation intact, Motor intact, Reflexes intact, Cranial nerves intact, Alert, Oriented Psychiatric: Affect appropriate, Mood appropriate Critical Care Note - Critical Care Note Total Time (mins): 0 Course - Course Orders, Labs, Meds: Orders Category Date Time Status Cyclobenzaprine HCl [Flexeril] MEDS 01/25/19 11:12 Stat 10 mg PO ONCE STA Ketorolac Tromethamine [Toradol] MEDS 01/25/19 11:11 Stat 60 mg IM ONCE STA Medications Generic Name Dose Route Start Last Admin Trade Name oPol PRN Reason Stop Dose Admin Ketorolac Tromethamine 60 mg 01/25/19 11:11 Toradol IM 01/25/19 11:12 ONCE STA Vital Signs: Temp Pulse Resp BP Pulse Ox 01/25/19 10:49 98.2 F 70 18 148/84 H 95 Departure - Departure Time of Disposition: 11:39 Disposition: HOME SELF-CARE Discharge Problem: Low back strain Qualifiers: Encounter type: initial encounter Qualified Code(s): S39.012A - Strain of muscle, fascia and tendon of lower back, initial encounter Instructions: Low Back Strain (ED) Condition: Good Pt referred to PMD for follow-up: Yes IPMP verified?: No Prescriptions: Cyclobenzaprine HCl [Flexeril] 10 mg PO TID 7 Days #21 tablet NS Prednisone 20 mg PO DAILYWM 5 Days #5 tablet NS Allergies/Adverse Reactions: Allergies cephalexin monohydrate [From Keflex] Adverse Reaction (Verified 01/25/19 11:03) Home Medications: Ambulatory Orders Aspirin [Aspirin EC] 81 mg PO DAILY 01/25/19 Clopidogrel Bisulfate [Plavix] 75 mg PO DAILY 01/25/19 Cyclobenzaprine HCl [Flexeril] 10 mg PO TID 7 Days #21 tablet NS 01/25/19 Lisinopril 2.5 mg PO DAILY 01/25/19 Metoprolol Succinate 25 mg PO BID 01/25/19 Prednisone 20 mg PO DAILYWM 5 Days #5 tablet NS 01/25/19 Transfer Form Completed: No Disposition Discussed With: Patient
[2019-01-25] MEDS: TORADOL IM STA (11:20)
== END 2019-01-25 11:42 | disposition home or self-care (01) ==
LOC: ED 10:49
DX: S39.012A Strain of muscle, fascia and tendon of lower back, initial encounter (principal); X50.0XXA Overexertion from strenuous movement or load, initial encounter; F17.210 Nicotine dependence, cigarettes, uncomplicated
CPT/HCPCS: 96372; 99282